=== PATIENT | male | born 1945 | race Caucasian/White ===

== ENCOUNTER 2017-11-20 06:59 | Day surgery (SDC) | payer MEDICARE, OTHER ==
[2017-11-19 15:54] LABS: BASOPHILS % (AUTO) 0.1 % (0-1); EOSINOPHILS # (AUTO) 0.3 X10'3 (0-0.9); EOSINOPHILS % (AUTO) 3.2 % (0-6); HEMATOCRIT 46.7 % (42.0-52.0); HEMOGLOBIN 15.7 g/dl (14.0-17.9); LYMPHOCYTES # (AUTO) 1.9 X10'3 (1.1-4.8); LYMPHOCYTES % (AUTO) 22.6 % (21-51); MEAN CORPUSCULAR HEMOGLOBIN 31.6 PG (27.0-31.0); MEAN CORPUSCULAR HGB CONC 33.5 % (33.0-36.5); MEAN CORPUSCULAR VOLUME 94.2 FL (78-98); MEAN PLATELET VOLUME 10.1 FL (7.4-10.4); MONOCYTES # (AUTO) 0.7 X10'3 (0-0.9); MONOCYTES % (AUTO) 8.8 % (2-12); NEUTROPHILS # (AUTO) 5.5 X10'3 (1.8-7.7); NEUTROPHILS % (AUTO) 65.3 % (42-75); PLATELET COUNT 135 X10'3 (140-440); RED BLOOD COUNT 4.96 X10'6 (4.70-6.10); WHITE BLOOD COUNT 8.4 X10'3 (4.5-11.0)
[2017-11-19 16:03] LABS: ALBUMIN 3.6 G/DL (3.4-5.0); ANION GAP 7 (8-16); BLOOD UREA NITROGEN 17 MG/DL (7-18); BUN/CREATININE RATIO 17.3 (5.4-32.0); CALCIUM 8.9 MG/DL (8.5-10.1); CHLORIDE 104 MMOL/L (99-107); CREATININE 0.98 MG/DL (0.60-1.10); GLUCOSE 96 MG/DL (70-104); POTASSIUM 3.7 MMOL/L (3.5-5.1); SODIUM 140 MMOL/L (135-145); eGFR 75 ML/MIN
[2017-11-19 16:04] LABS: PROTHROMBIN TIME 10.6 SECONDS (9.0-12.0)
[2017-11-20] VITALS (20 sets, daily range): BP systolic 135–158; BP diastolic 71–95
[~2017-11-20] VITALS: Ht 182.9 cm; Wt 136.8 kg
[2017-11-20] MEDS ORDERED: AMLO10TA PO (07:19)
[2017-11-20] MEDS ORDERED: APIX2.5T PO (07:19)
[2017-11-20] MEDS ORDERED: HYDR-4070 PO (07:19)
[2017-11-20] MEDS ORDERED: LOSA100T28 PO (07:19)
[2017-11-20] MEDS ORDERED: SOTA80TA69 PO (07:19)
[2017-11-20] MEDS ORDERED: MULT-1085 PO (07:19)
[2017-11-20] MEDS ORDERED: SOTA80TA PO (07:19)
[2017-11-20] MEDS ORDERED: atropine 0.1mg/ml 10ml syringe IV ONE (07:20)
[2017-11-20] MEDS ORDERED: LORazepam 0.5 MG tablet PO ONE (07:20)
[2017-11-20] MEDS ORDERED: amiodarone in dextrose, iso-osm 150mg/100ml bag IV ONE (07:20)
[2017-11-20] MEDS ORDERED: normal saline 1000ml 1,000 ML IV SCH (07:20)
[2017-11-20] MEDS ORDERED: diphenhydrAMINE 25mg capsule PO ONE (07:20)
[2017-11-20] MEDS ORDERED: morphine 10mg/ml inj. IV ONE (07:20)
[2017-11-20] MEDS ORDERED: MIDAZolam 5mg/ml 2ml vial IV ONE (07:20)
== END 2017-11-20 12:43 | disposition home or self-care (01) ==
LOC: SSTAY O 06:59
PROVIDERS: ATTEND Internal Medicine Cardiovascular Disease
DX: I48.0 Paroxysmal atrial fibrillation (principal); I10 Essential (primary) hypertension; E78.5 Hyperlipidemia, unspecified; G47.33 Obstructive sleep apnea (adult) (pediatric); I25.10 Atherosclerotic heart disease of native coronary artery without angina pectoris; I49.1 Atrial premature depolarization; E66.01 Morbid (severe) obesity due to excess calories; M19.90 Unspecified osteoarthritis, unspecified site; Z88.5 Allergy status to narcotic agent; Z88.8 Allergy status to other drugs, medicaments and biological substances; Z87.891 Personal history of nicotine dependence; Z96.643 Presence of artificial hip joint, bilateral; Z79.01 Long term (current) use of anticoagulants; Z96.653 Presence of artificial knee joint, bilateral; Z98.41 Cataract extraction status, right eye; Z98.42 Cataract extraction status, left eye; Z72.89 Other problems related to lifestyle; Z79.82 Long term (current) use of aspirin; Z79.899 Other long term (current) drug therapy; Z68.41 Body mass index [BMI] 40.0-44.9, adult
CPT/HCPCS: 36415; 80048; 85025; 85610; 92960; 93005; J2250; J2270; J7030; A4620; J0282; J0461